=== PATIENT | male | born 1985 | race Two or more races ===

== ENCOUNTER 2018-02-20 22:19 | Emergency (ER) | payer MEDICAID ==
[~2018-02-20] VITALS: Ht 180.3 cm; Wt 81.6 kg
[2018-02-21] MEDS ORDERED: MECLIZINE HCL 25 MG TABLET ONE (00:15)
[2018-02-21] MEDS ORDERED: MECLIZINE HCL 12.5 MG TABLET PO ONE (00:30)
[2018-02-21 01:48] VITALS: BP 123/73
== END 2018-02-21 01:50 | disposition home or self-care (01) ==
LOC: ER 22:27
DX: R42 Dizziness and giddiness (principal); F41.9 Anxiety disorder, unspecified
CPT/HCPCS: 70450; 93005; 99284; A4606; J8597; Z7610